=== PATIENT | female | born 1995 | race Caucasian/White ===

== ENCOUNTER 2019-11-15 17:20 | Emergency (ER) | payer SELFPAY ==
[2019-11-15 17:24] VITALS: BP 164/110; PULSE 108; RESP 18; TEMP 37.2; O2SAT 99; BMI 36.5
--- NOTE | 2019-11-15 17:30 | ED_ITS ---
HPI - Back Pain/Injury General: Chief Complaint: Back Pain/Injury Stated Complaint: BACK PAIN Time Seen by Provider: 11/15/19 17:21 Source: patient Mode of arrival: ambulatory Limitations: no limitations History of Present Illness: HPI Narrative: Patient is a 24-year-old female who presents to ED today with complaint of lower back pain that began today. Patient tells me she has a chronic history of back spasms in which she treats with Midol. Patient states pain seems to be similar to this but more severe. She is not having any radiation down into her lower extremities. She denies saddle anesthesia, urinary retention, or bowel incontinence. She is not complaining of any urinary symptoms. She denies abdominal pain, nausea, vomiting, diarrhea. Patient states she is having trouble ambulating due to her pain. MD elicited complaint: back pain Pertinent past history: prior back pain Onset (ago): hour(s) Timing: constant Severity: severe Similar Symptoms Previously: Yes Location: lumbar spine Radiation: none Exacerbating factors: movement, sitting upright, walking, coughing/sneezing and lifting Relieving factors: none Associated symptoms: Reports no associated symptoms and difficulty walking (secondary to pain); Deny abdominal pain, dysuria, fever(s) or urinary urgency Review of Systems Const: Denies: fever(s) Card: Denies: chest pain Resp: Denies: dyspnea GI: Denies: abdominal pain : Denies: flank pain, difficulty voiding, dysuria, urinary frequency, urinary urgency or urinary hesitancy Musc: Reports: back pain; Denies: neck pain, extremity pain, extremity swelling, joint pain or joint swelling Neuro: Reports: difficulty walking (secondary to pain); Denies: headache(s), numbness in extremities, weakness in extremities or sensory changes [facility] ED PFSH: Medical History (Updated 11/15/19 @ 19:43 by ORMERO Mendieta) SVT (supraventricular tachycardia) Family History Grandfather Cancer Grandmother Cancer Mother Hypertension Social History Alcohol intake: current Physical Exam Const: COMMON NORMALS: no acute distress, patient oriented x3, no limitations and alert NUTRITIONAL APPEARANCE: obese GI: COMMON NORMALS: Normal to inspection, nondistended, normoactive bowel sounds present, Soft to palpation, non-tender, No hepatosplenomegaly present and no masses PALPATION: Yes Soft to palpation and Yes No hepatosplenomegaly present : COMMON NORMALS: Yes no CVA tenderness BLADDER/KIDNEY EXAM: Yes no CVA tenderness Back/Pelvis: COMMON NORMALS: no CVA tenderness THORACIC SPINE/UPPER BACK: Yes normal to inspection LUMBAR SPINE/LOWER BACK: Yes paraspinal muscle tenderness (throughout lower lumbar; across back) PELVIS: Yes buttocks normal SACROILIAC JOINTS: Yes SI joints normal Neuro: COMMON NORMALS: patient oriented x3, moves all extremities, no focal motor deficits and no sensory deficits noted SENSORIUM/ORIENTATION: Yes alert Skin: COMMON NORMALS: no rashes or lesions noted GENERAL SKIN EXAM: no rashes or lesions noted Course Vital Signs: Vital signs: Vital Signs Temperature 98.9 F 11/15/19 17:24 Pulse Rate 82 11/15/19 18:11 Respiratory Rate 16 11/15/19 19:52 Blood Pressure 133/74 11/15/19 18:11 Pulse Oximetry 99 11/15/19 18:11 MDM - Back Pain/Injury Lab Data: Labs: Lab Results 11/15/19 11/15/19 Range/Units 18:35 18:35 Urine Color Yellow (Yellow) Urine Appearance Clear (CLEAR) Urine pH 6.5 (5-7) Ur Specific Gravit y 1.010 (1.005-1.030) Urine Protein Neg (Negative) Urine Glucose (UA) Norm (Normal) Urine Ketones Negative (Negative) Urine Blood Neg (Negative) Urine Nitrate Negative (Negative) Urine Bilirubin Neg (NEGATIVE) Urine Urobilinogen Norm (Negative) mg/dL Ur Leukocyte Sandrita ase Trace H (Negative) Urine RBC None (0-2) /hpf Urine WBC 5-10 H (0-5) /hpf Ur Squamous Epith Cells 15-25 H (0-5) Amorphous Sediment Not Reportable Urine Bacteria 1+ H (NONE) Urine Mucus 1+ Urine HCG, Qual Negative (Negative) Discharge Plan Discharge Patient Disposition: Home, Self-Care Clinical Impression: Back pain Qualifiers: Back pain location: low back pain Back pain laterality: midline Sciatica presence: without sciatica Condition: Stable Prescriptions: New cyclobenzaprine 10 mg tablet 10 mg PO TID Qty: 14 RF: 0 ibuprofen 800 mg tablet 800 mg PO Q8H PRN (Reason: pain) Qty: 20 RF: 0 hydrocodone-acetaminophen 5-325 mg tablet 1 tab PO Q6H PRN (Reason: pain) Qty: 10 RF: 0 Medrol ([place]) 4 mg tablets,dose pack See Rx Instructions .ROUTE .COMPLEX Qty: 21 RF: 0 No Action multivitamin [Daily Multi-Vitamin] Tablet 1 tab PO QAM RF: 0 metoprolol succinate 25 mg capsule,sprinkle,ER 24hr 25 mg PO DAILY 90 Days Qty: 90 RF: 1 Midol 500-25 mg Tablet 1 tab PO Q4H PRN (Reason: Pain) RF: 0 Discharge Orders: Discharge Order (Routine); Ordered 11/15/19 Ordered By: Sarika Stacy Referrals: Cindi Gonzalez FNP [Primary Care Provider] - Patient Instructions: Low Back Strain (ED), Acute Low Back Pain (ED), Back Pain (ED) Activity Restrictions/Additional Instructions: Please follow-up with primary care in 3 to 5 days if pain persist. You may return to the emergency department for uncontrollable pain, inability to urinate, loss of bowel, or any other concerns you may have. Stand Alone Forms: Work/School Release Discharge Date/Time: 11/15/19 19:53 Coding Level of Care Code ED Sociology Research Assistant for Isaiasg Fwd Exam Expanded Problem Focused
[2019-11-15 17:31] VITALS: BP 133/74; PULSE 82; RESP 18; O2SAT 98
[2019-11-15] MEDS: ketorolac 60 mg/2 mL INJ IM (18:04)
[2019-11-15] MEDS: dexamethasone 10 mg/mL INJ 8 MG IM (18:04)
[2019-11-15] MEDS: orphenadrine 30 mg/mL Inj 2 mL 60 MG IM (18:04)
[2019-11-15 18:11] VITALS: BP 133/74; PULSE 82; RESP 14; O2SAT 99
[2019-11-15 18:50] LABS: Bilirubin Urine Neg (NEGATIVE); Blood Urine Neg (Negative); Glucose Urine UA Norm (Normal); Ketones Urine Negative (Negative); Nitrate Urine Negative (Negative); Protein Urine Neg (Negative); Urine Appearance Clear (CLEAR); Urine Color Yellow (Yellow); pH Urine 6.5 (5-7)
[2019-11-15 18:51] LABS: Add Urine Microscopic? YES; Leukocyte Esterase Urine Trace (Negative); Urobilinogen Urine Norm (Negative)
[2019-11-15 18:54] LABS: Squamous Epithelial Cell Urine 15-25 (0-5)
[2019-11-15 18:55] LABS: Add Urine Culture? No; Bacteria Urine 1+; Mucus Urine 1+
[2019-11-15] MEDS: HYDROcodone-acetaminophen 5-325 mg Tablet 2 TAB PO (19:50)
[2019-11-15 19:52] VITALS: RESP 16
== END 2019-11-15 19:53 | disposition home or self-care (01) ==
PROVIDERS: Emergency Provider Physician Assistant; PCP Nurse Practitioner Family
DX: M54.5 Low back pain (principal)
CPT/HCPCS: 12345; 81001; 81003; 81025; 96372; 99281; 99283; J1100; J1885; J2360

== ENCOUNTER 2023-12-02 08:20 | Emergency (ER) | payer OTHER, SELFPAY ==
[2023-12-02 08:24] VITALS: BP 147/95; PULSE 82; RESP 20; TEMP 36.8; O2SAT 100; BMI 34.7
--- NOTE | 2023-12-02 08:39 | ECG_ITS ---
[facility] Test Date: 2023-12-02 Pat Name: Mira Echeverria Department: Room: Gender: Female Medical Record Specialist: : 1995 Requested By: Bruno Alicea Order Number: [id number] Brody MD: Dm Lucio M.D. Measurements Intervals [place] Rate: 90 P: 42 [place]: 144 QRS: 3 QRSD: 128 T: 50 QT: 370 QTc: 454 Interpretive Statements SINUS RHYTHM WITH SINUS ARRHYTHMIA POSSIBLE RIGHT VENTRICULAR CONDUCTION DELAY [RSR (QR) IN V1/V2] MINIMAL ST DEPRESSION [0.025+ mV ST DEPRESSION] Compared to ECG 09/11/2017 09:04:24 ST (T wave) deviation now present Intraventricular conduction delay no longer present Electronically Signed On 12-02-2023 12:45:30 CDT by Dm Lucio M.D. [email or web address]
--- NOTE | 2023-12-02 08:41 | XRR_ITS ---
PROCEDURE INFORMATION: Exam: XR Chest Exam date and time: 12/02/2023 8:53 AM Age: 28 years old Clinical indication: Pain; Angina pectoris; Additional info: Chest pain TECHNIQUE: Imaging protocol: Radiologic exam of the chest. Views: 1 view. COMPARISON: CR XR chest 1V [id number] 02/02/2019 8:06 AM FINDINGS: Lungs: Unremarkable. No consolidation. Pleural spaces: Unremarkable. No pleural effusion. No pneumothorax. Heart/Mediastinum: Unremarkable. No cardiomegaly. Bones/joints: Unremarkable. XR/XR chest 1V portable [id number] IMPRESSION: No acute findings.
--- NOTE | 2023-12-02 08:42 | ED_ITS ---
HPI - Chest Pain 2 General: Chief Complaint: Chest Pain Stated Complaint: chest pains Time Seen by Provider: 12/02/23 08:29 History of Present Illness: 28-year-old female history of SVT presen ts emergency room having woken up in the middle of the night with a sensation of burning in her chest. She describes it as feeling like somebody put IcyHot on her stomach. States it radiates to her left arm when she first tries she has a normal sinus rhythm when I went to the room to examine her nurse was starting an IV and she had gone into SVT we had her do a Valsalva maneuver when she was out of SVT by the time the optical manufacturing technician came back to repeat your EKG. LAD first come in her heart rate was 150s and 160s. She has a known history of S VT and was previously on metoprolol, prior to that she was on another medications but it was stopped because it caused hypotension. She has not had any problems recently and has not been taking the metoprolol. Associated symptoms: Reports palpitations; Deny abdominal pain, dyspnea or fever(s) Review of Systems 2 Const: Denies: fever(s) or chills Card: Reports: chest pain and palpitations Resp: Denies: dyspnea GI: Denies: abdominal pain : Denies: dysuria, urinary frequency or urinary urgency Musc: Denies: neck pain or back pain Skin/Breast: Denies: rash PFSH ED 2 PFSH: Medical History (Updated 12/02/23 @ 11:54 by Bruno Miranda DO) SVT (supraventricular tachycardia) Family History Grandfather Cancer Grandmother Cancer Mother Hypertension Social History Smoking and tobacco/nicotine status: never used tobacco/nicotine Alcohol intake: current Physical Exam 2 Const: COMMON NORMALS: no acute distress GENERAL APPEARANCE: cooperative and comfortable ORIENTATION/CONSCIOUSNESS: Yes awake, Yes oriented to person, Yes oriented to place and Yes oriented to time HENMT: COMMON NORMALS: normocephalic, atraumatic and hearing grossly normal bilaterally HEAD & SCALP: normocephalic and atraumatic Resp: COMMON NORMALS: normal respiratory effort, No retractions, No use of accessory muscles and clear to auscultation bilaterally AUSCULTATION: clear to auscultation bilaterally Cardio: COMMON NORMALS: regular rhythm and No murmurs present (Cardio) R ATE: tachycardic RHYTHM: regular rhythm GI: COMMON NORMALS: Soft to palpation and No hepatosplenomegaly present A USCULTATION: Yes normoactive bowel sounds PALPATION: Yes Soft to palpation, No Tenderness to palpation present (GI), No Guarding due to palpation present (GI) and Yes No hepatosplenomegaly present Extremity: COMMON NORMALS: normal to inspection, capillary refill normal, no clubbing, cyanosis or edema, no calf tenderness and no pedal edema Neuro: SENSORIUM/ORIENTATION: Yes oriented to person, Yes oriented to place and Yes oriented to time Skin: COMMON NORMALS: no rashes or lesions noted GENERAL SKIN EXAM: no rashes or lesions noted Course 2 Vital Signs: Vital signs: Vital Signs Temperature 98.3 F 12/02/23 08:24 Pulse Rate 69 12/02/23 11:31 Respiratory Rate 20 H 12/02/23 08:24 Blood Pressure 149/112 12/02/23 11:31 Pulse Oximetry 99 12/02/23 11:31 Oxygen Delivery Me thod Room Air 12/02/23 11:31 MDM - Chest Pain Medical Decision Making Patient is feeling fine no further complaints no further tachycardia. Blood pressure slightly elevated will discharge home recommend follow-up with her primary care doctor or emergency medical technician basic. Lab Data 12/02/23 08:38 12/02/23 08:38 Radiology Impressions Chest X-Ray 12/02/23 08:41 IMPRESSION: No acute findings. Laboratory Results WBC 6.51 10^3/uL (3.29-11.43) 12/02/23 08:38 RBC 5.36 10^6/uL (3.85-5.65) 12/02/23 08:38 Hgb 14.60 g/dL (11.27-16.99) 12/02/23 08:38 Hct 44.8 % (36-47) 12/02/23 08:38 MCV 83.6 fl (85-98) L 12/02/23 08:38 MCH 27.2 pg (27-33) 12/02/23 08:38 MCHC 32.6 g/dL (30-55) 12/02/23 08:38 RDW 13.5 % (12.1-15.1) 12/02/23 08:38 Plt Count 240 10^3/cmm (157-399) 12/02/23 08:38 MPV 10.7 fL (7.4-10.4) H 12/02/23 08:38 Neut % (Auto) 54.1 % 12/02/23 08:38 Lymph % (Auto) 35.6 % 12/02/23 08:38 [place] % (Auto) 8.3 % 12/02/23 08:38 Eos % (Auto) 0.9 % 12/02/23 08:38 Baso % (Auto) 0.6 % 12/02/23 08:38 Neut # (Auto) 3.52 10^3/uL (1.8-7.7) 12/02/23 08:38 Lymph # (Auto) 2.3 10^3/uL (0.8-4.8) 12/02/23 08:38 [place] # (Auto) 0.5 10^3/uL (0.2-0.9) 12/02/23 08:38 Eos # (Auto) 0.1 10^3/uL (0.0-0.8) 12/02/23 08:38 Baso # (Auto) 0.0 10^3/uL (0.0-0.1) 12/02/23 08:38 Nucleated RBC % (auto) 0 % 12/02/23 08:38 Nucleated RBCs # 0.0 /100WBC 12/02/23 08:38 D-Dimer 0.33 ug/mLFEU (0-0.59) 12/02/23 08:38 Sodium 140 mmol/L (136-145) 12/02/23 08:38 Potassium 3.7 mmol/L (3.5-5.1) 12/02/23 08:38 Chloride 104 mmol/L (98-107) 12/02/23 08:38 Carbon Dioxide 24 mmol/L (22-29) 12/02/23 08:38 Anion Gap 15.7 (5-19) 12/02/23 08:38 BUN 9 mg/dL (6-20) 12/02/23 08:38 Creatinine 0.6 mg/dL (0.5-0.9) 12/02/23 08:38 GFR Calculation 118.2 mL/min (90-130) 12/02/23 08:38 Glucose 95 mg/dL (65-115) 12/02/23 08:38 Calculated Osmolality 288 mOsm/kg (285-295) 12/02/23 08:38 Calcium 9.3 mg/dL (8.5-10.5) 12/02/23 08:38 Total Bilirubin 0.4 mg/dL (0.15-1.2) 12/02/23 08:38 AST 16 U/L (0-32) 12/02/23 08:38 ALT 19 U/L (0-33) 12/02/23 08:38 Alkaline Phosphatase 84 U/L (35-105) 12/02/23 08:38 Troponin T Baseline < 6 ng/L (0-10) 12/02/23 08:38 Troponin T 120 Minute 6.00 ng/L (0-10) 12/02/23 10:05 Delta Troponin T 0.29716 ABS# (0-10) 12/02/23 10:05 Total Protein 7.5 g/dL (6.6-8.7) 12/02/23 08:38 Albumin 4.5 g/dL (3.5-5.2) 12/02/23 08:38 Globulin 3.0 g/dL (1.3-4.6) 12/02/23 08:38 Lipase 36 U/L (13-60) 12/02/23 08:38 Urine Color Other (Yellow) A 12/02/23 08:46 Urine Appearance Clear (CLEAR) 12/02/23 08:46 Urine pH 7 (5-7) 12/02/23 08:46 Ur Specific [place] 1.005 (1.005-1.030) 12/02/23 08:46 Urine Protein Neg (Negative) 12/02/23 08:46 Urine Glucose (UA) Norm (Normal) 12/02/23 08:46 Urine Ketones Negative (Negative) 12/02/23 08:46 Urine Blood Neg (Negative) 12/02/23 08:46 Urine Nitrate Negative (Negative) 12/02/23 08:46 Urine Bilirubin Neg (Negative) 12/02/23 08:46 Urine Urobilinogen Norm mg/dL (Negative) 12/02/23 08:46 Ur Leukocyte Esterase Negative (Negative) 12/02/23 08:46 All radiology interpretation(s) finalized by discharge Discharge Plan Discharge Patient Disposition: Home Clinical Impression: Atypical chest pain, Tachycardia Condition: Stable Prescriptions: No Action Sprintec (28) 0.25-35 mg-mcg tablet 1 tab PO DAILY Fiber (calcium polycarbophil) 625 mg Tablet 625 mg PO DAILY metformin 500 mg tablet extended release 24 hr 500 mg PO DAILY loratadine 10 mg Tablet 10 mg PO DAILY PRN (Reason: ALLERGIES) 28 mg iron- 800 mcg Tablet 1 tab PO DAILY Discharge Orders: Discharge ED (Routine); Ordered 12/02/23 Ordered By: Bruno Miranda Referrals: Akilah Rodriguez DO [Primary Care Provider] - Discharge Diet: Usual diet Discharge Activity: Resume usual activity Patient Instructions: Opioid Safety, Pain Management Activity Restrictions/Additional Instructions: Thank you for choosing [facility] for your healthcare needs today. It is very important that you follow up as instructed or that you return to the Emergency Department should you have concerns or if your condition changes or worsens in any way. You were seen today for complaints [place] for your cardiac enzymes and screening for blood clot were negative. Chest x-ray was normal. You did have an episode of rapid heart rate. To be sinus tachycardia while you are in the emergency room. Would recommend that you follow-up with your primary care doctor or the emergency medical technician basic to reevaluate blood pressure and heart rate. Coding Level of Care Code ED Enrobing Machine Feeder for Colton Ortiz
[2023-12-02 08:48] LABS: Add Urine Microscopic? NO; Charge for UA Resulting for Rev
[2023-12-02 08:54] LABS: Basophils % 0.6 %; Eosinophils # 0.1 10^3/uL (0.0-0.8); Eosinophils % 0.9 %; Hematocrit 44.8 % (36-47); Lymphocytes # 2.3 10^3/uL (0.8-4.8); Lymphocytes % 35.6 %; Mean Corpuscular HGB Conc 32.6 g/dL (30-55); Mean Corpuscular Hemoglobin 27.2 pg (27-33); Mean Corpuscular Volume 83.6 fl (85-98); Mean Platelet Volume 10.7 fL (7.4-10.4); Monocytes # 0.5 10^3/uL (0.2-0.9); Monocytes % 8.3 %; Neutrophils # 3.52 10^3/uL (1.8-7.7); Neutrophils % 54.1 %; Nucleated Red Blood Cells % 0 %; Platelet Count 240 10^3/cmm (157-399); Red Blood Count 5.36 10^6/uL (3.85-5.65); Red Cell Distribution Width 13.5 % (12.1-15.1); White Blood Count 6.51 10^3/uL (3.29-11.43)
[2023-12-02 08:57] LABS: Bilirubin Urine Neg (Negative); Blood Urine Neg (Negative); Glucose Urine UA Norm (Normal); Ketones Urine Negative (Negative); Leukocyte Esterase Urine Negative (Negative); Nitrate Urine Negative (Negative); Protein Urine Neg (Negative); Specific Gravity, Urine 1.005 (1.005-1.030); Urine Appearance Clear (CLEAR); Urine Color Other (Yellow); Urobilinogen Urine Norm (Negative); pH Urine 7 (5-7)
[2023-12-02 09:08] LABS: Alanine Aminotransferase 19 U/L (0-33); Albumin Level 4.5 g/dL (3.5-5.2); Alkaline Phosphatase 84 U/L (35-105); Anion Gap 15.7 (5-19); Aspartate Amino Transferase 16 U/L (0-32); Blood Urea Nitrogen 9 mg/dL (6-20); Calcium 9.3 mg/dL (8.5-10.5); Carbon Dioxide 24 mmol/L (22-29); Chloride 104 mmol/L (98-107); Creatinine Clr Calc Pharmacy 174.0836; Glomerular Filtration Rate 118.2 mL/min (90-130); Glucose 95 mg/dL (65-115); Lipase 36 U/L (13-60); Osmolality Calculated 288 mOsm/kg (285-295); Potassium 3.7 mmol/L (3.5-5.1); Sodium 140 mmol/L (136-145); Total Bilirubin 0.4 mg/dL (0.15-1.2); Total Protein 7.5 g/dL (6.6-8.7)
[2023-12-02] MEDS: lidocaine 2% viscous 15 ML, aluminum-mag hydrox-simethicon 30 ML, sucralfate oral liq 1 GM PO (09:10)
[2023-12-02 10:07] LABS: Troponin(5th) Baseline < 6 ng/L (0-10)
[2023-12-02 10:31] VITALS: BP 135/95; PULSE 67; O2SAT 98
[2023-12-02 10:52] LABS: D Dimer 0.33 ug/mLFEU (0-0.59)
[2023-12-02 11:25] LABS: Troponin 5 2HR Delta 0.00001 ABS# (0-10)
[2023-12-02 11:31] VITALS: BP 149/112; PULSE 69; O2SAT 99
--- NOTE | 2023-12-02 11:42 | ECG_ITS ---
[facility] Test Date: 2023-12-02 Pat Name: Mira Echeverria Department: Room: Gender: Female Fur Glosser: : 1995 Requested By: Bruno Alicea Order Number: [id number] Brody MD: Dm Lucio M.D. Measurements Intervals [place] Rate: 69 P: 23 [place]: 142 QRS: 10 QRSD: 124 T: 31 QT: 390 QTc: 419 Interpretive Statements SINUS RHYTHM MODERATE INTRAVENTRICULAR CONDUCTION DELAY [110+ ms QRS DURATION] Compared to ECG 12/02/2023 08:39:32 Intraventricular conduction delay now present Sinus arrhythmia no longer present ST (T wave) deviation no longer present Electronically Signed On 12-02-2023 12:45:48 CDT by Dm Lucio M.D. [id number]
[2023-12-02 12:12] VITALS: BP 149/112; PULSE 69; RESP 20; TEMP 36.8; O2SAT 99
== END 2023-12-02 12:18 | disposition home or self-care (01) ==
PROVIDERS: Emergency Provider Family Medicine; PCP Family Medicine
DX: R07.89 Other chest pain (principal); R00.0 Tachycardia, unspecified; Z79.84 Long term (current) use of oral hypoglycemic drugs
CPT/HCPCS: 71045; 80053; 81003; 83690; 84484; 85025; 85378; 93005; 99285

== ENCOUNTER → 2024-07-17 11:37 | Outpatient (BNVA) | payer OTHER, SELFPAY | PROVIDERS: PCP Family Medicine; Visit Provider Nurse Practitioner Women's Health | DX: E28.2 Polycystic ovarian syndrome (principal); N92.0 Excessive and frequent menstruation with regular cycle; N91.5 Oligomenorrhea, unspecified | CPT/HCPCS: 80053; 82306; 82607; 82728; 82746; 83036; 83525; 83540; 84146; 84403; 84439; 84443; 84702; 85025 ==

== ENCOUNTER → 2024-07-30 07:49 | Outpatient (BNVA) | payer OTHER, SELFPAY | PROVIDERS: PCP Family Medicine; Visit Provider Nurse Practitioner Women's Health | DX: N92.6 Irregular menstruation, unspecified (principal); R93.89 Abnormal findings on diagnostic imaging of other specified body structures; N88.8 Other specified noninflammatory disorders of cervix uteri | CPT/HCPCS: 76830 ==

== ENCOUNTER → 2024-09-29 07:57 | Outpatient (BNVA) | payer OTHER, SELFPAY | PROVIDERS: PCP Family Medicine; Visit Provider Nurse Practitioner Women's Health | DX: N83.202 Unspecified ovarian cyst, left side (principal) | CPT/HCPCS: 76830 ==

== ENCOUNTER 2025-03-15 06:36 | Outpatient (CLI) | payer OTHER, SELFPAY ==
--- NOTE | 2025-03-15 07:00 | US_ITS ---
WS: [id number] US transvaginal [id number] HISTORY: N83.202 - Unspecified ovarian cyst, left side COMPARISON: 09/29/2024, 07/30/2024 Uterus: 6.6 cm x 4.7 cm x 3.4 cm. Normal size anteverted uterus. No fibroid or mass. Endometrium: 0.7 cm. Normal. Right ovary: 3.2 cm x 3.1 cm x 2.0 cm. Normal size ovary. Numerous small peripheral follicles. Left ovary: 3.2 cm x 3.1 cm x 2.6 cm. Normal size ovary. Persistent hyperechoic focus associated with the LEFT ovary measures 1.1 x 1.1 x 0.7 cm. This hyperechoic focus has been present since 07/30/2024 with increase in size. No free fluid in the cul-de-sac. US/US transvaginal [id number] IMPRESSION: 1. Normal uterus and endometrium. 2. Stable hyperechoic focus in the LEFT ovary measures 1.1 x 1.1 x 0.7 cm. Due to stability since 07/30/2024 this is probably a small dermoid.
== END 2025-03-15 06:37 | disposition home or self-care (01) ==
LOC: RAD 06:39
PROVIDERS: PCP Family Medicine; Visit Provider Nurse Practitioner Women's Health
DX: E28.2 Polycystic ovarian syndrome (principal)
CPT/HCPCS: 76830